=== PATIENT | male | born 1980 | race Caucasian/White ===

== ENCOUNTER → 2020-09-15 15:10 | Outpatient (CLI) | payer OTHER, SELFPAY ==
--- NOTE | 2020-09-15 | DI.MRI.S_ITS ---
PROCEDURE: MR BRAIN (IAC) WWO CON INDICATIONS: Unspecified sensorineural hearing loss TECHNIQUE: Noncontrast sagittal T1 spin echo, axial FLAIR, axial gradient echo, axial diffusion and ADC through the brain. Axial thin-slice 3D CISS, coronal TruFISP, axial T1 spin echo with fat saturation through the internal auditory canals. After the administration of contrast, thin slice axial and coronal T1 spin echo with fat saturation through the internal auditory canals, and axial T1 spin echo with fat saturation through the brain. COMPARISON: None. FINDINGS: Image quality: Excellent. Cranial nerves: No cerebellopontine angle masses. Visualized cranial nerves demonstrate no areas of abnormal enhancement, signal or mass lesion. CSF spaces: Ventricles are normal in size and shape. No extra-axial fluid collections. Basal cisterns are patent. Brain: No intracranial bleeds or mass effects. Latham-white matter interface is intact. No abnormal intracranial enhancement. There is a punctate focus of hyperintense FLAIR signal within the left temporal lobe. Diffusion weighted images demonstrate no acute ischemic insults. Brainstem appears normal. Normal intravascular flow voids are present. Skull and face: Calvarial marrow signal is normal. Orbits appear normal. Sinuses: Sinuses and mastoids are clear. IMPRESSION: 1. Cerebellopontine angles as well as cranial nerves are unremarkable. 2. Punctate focus of hyperintense FLAIR signal within the left temporal lobe. This is overall nonspecific. This could represent a focus of early chronic microvascular ischemic change, migraine sequela, previous focus of infection/inflammation/ischemia or demyelinating disease. Dictated by: Carmelita Nieves M.D. on 09/15/2020 at 17:24 Approved by: Carmelita Nieves M.D. on 09/15/2020 at 17:27
== END ==
PROVIDERS: Referring Provider Student in an Organized Health Care Education/Training Program; Visit Provider Student in an Organized Health Care Education/Training Program
DX: H90.5 Unspecified sensorineural hearing loss (principal)
CPT/HCPCS: 70553; A9579

== ENCOUNTER → 2022-08-01 16:42 | Outpatient (CLI) | payer OTHER, SELFPAY ==
--- NOTE | 2022-08-01 16:44 | DI.MRI.S_ITS ---
PROCEDURE: MR HEAD/BRAIN WO/W CON INDICATIONS: abnormal exam follow up TECHNIQUE: Noncontrast axial T1 spin echo, axial T2 fast spin echo, sagittal and axial FLAIR, coronal T2 fast spin echo, axial gradient echo, axial diffusion and ADC through the brain. After the administration of contrast, axial and coronal and sagittal 3D VIBE or T1 spin echo with fat saturation through the brain. COMPARISON: None. FINDINGS: Image quality: Excellent. CSF Spaces: Basal cisterns are patent. No extra-axial fluid collections. Ventricles are normal in size and shape. Brain: No midline shift. No intracranial bleeds or masses. No abnormal intracranial enhancement. The brainstem appears normal. Diffusion-weighted images demonstrate no acute ischemic insults. The previously seen abnormal T2 hyperintense FLAIR focus on the left is not well seen. Normal intravascular flow voids are present. Skull and face: Calvarial marrow is normal in signal. Orbits appear normal. Sinuses: Sinuses and mastoids appear clear. IMPRESSION: No significant intracranial abnormality can be seen. Decreased conspicuity of the previously described left sided increased focus of FLAIR signal. Dictated by: Alexis Cardenas M.D. on 08/01/2022 at 17:24 Approved by: Alexis Cardenas M.D. on 08/01/2022 at 17:26
== END ==
DX: H93.12 Tinnitus, left ear (principal)
CPT/HCPCS: 70553